=== PATIENT | female | born 1985 | race Caucasian/White ===

== ENCOUNTER 2020-03-13 07:43 | Outpatient (CLI) | payer OTHER ==
--- NOTE | 2020-03-13 08:29 | ULT ---
Pelvic sonogram transabdominal and transvaginal imaging with duplex evaluation HISTORY: Pelvic pain. FINDINGS: Urinary bladder is decompressed. Uterus has a heterogeneous echotexture and measures up to 10.1 cm. Multiple heterogeneous hypoechoic myometrial masses are present. The largest is at the posterior uterine body, measuring up to 7.5 cm x 6.7 cm greatest diameters. Endometrium is slightly distorted and measures up to 0.5 cm. No significant free fluid. Right ovary measures up to 3.5 cm length with good color and spectral Doppler flow. Left ovary not vi sualized with transabdominal or transvaginal imaging. No evidence of adnexal mass. IMPRESSION : Fibroid involvement of the uterus, measuring up to 7.5 cm posteriorly.
--- NOTE | 2020-03-13 08:56 | MMO ---
Bilateral MAMMO Bilat Diag [facility]. CLINICAL HISTORY: Patient is 34 years old and is seen for diagnostic exam. The patient has no family history of breast cancer. The patient has no personal history of cancer. VIEWS: The views performed were: bilateral craniocaudal with tomosynthesis; bilateral mediolateral oblique with tomosynthesis; and bilateral mediolateral with tomosynthesis. FILMS COMPARED: The present examination has been compared to a prior imaging study performed at [facility] [place] on 03/13/2020. This study has been interpreted with the assistance of computer-aided detection. MAMMOGRAM FINDINGS: The breasts are heterogeneously dense, which could obscure a lesion on mammography. No mammographic or ultrasound finding to account for the palpable finding in the lower outer Left breast. There are no suspicious masses, suspicious calcifications, or new areas of architectural distortion. IMPRESSION: THERE IS NO MAMMOGRAPHIC EVIDENCE OF MALIGNANCY. A ROUTINE FOLLOW-UP MAMMOGRAM AT AGE 39 IS RECOMMENDED. THE RESULTS OF THIS EXAM WERE SENT TO THE PATIENT. ACR BI-RADS Category 2 - Benign finding MAMMOGRAPHY NOTE: 1. A negative mammogram report should not delay a biopsy if a dominant of clinically suspicious mass is present. 2. Approximately 10% to 15% of breast cancers are not detected by mammography. 3. Adenosis and dense breasts may obscure an underlying neoplasm. Reported by: DAVID ZHOU MD Electonically Signed: [id number]
--- NOTE | 2020-03-13 11:31 | ULT ---
LEFT BREAST ULTRASOUND LIMITED: HISTORY: The patient presents with a palpable finding in the left breast at approximately the 4-6 o'clock posi tion in the left breast. Diagnostic mammogram showed no evidence for abnormal mammographic finding. FINDINGS: On this ultrasound examination, there is some asymmetric breast tissue, but no evidence for solid or cystic mass. IMPRESSION: No evidence for a solid or cystic mass on ultrasound to account for a palpable finding. No abnormal m ammographic finding was demonstrated. Recommend followup screening exams no later than age 40 depend ing upon risk fractures. POS: MARLINE
== END 2020-03-13 07:44 | disposition home or self-care (01) ==
LOC: BICULT 07:43
PROVIDERS: ATTEND Internal Medicine
DX: N63.20 Unspecified lump in the left breast, unspecified quadrant (principal); R10.2 Pelvic and perineal pain; D25.9 Leiomyoma of uterus, unspecified
CPT/HCPCS: 76856; 77066; G0279

== ENCOUNTER 2020-08-29 09:24 | Inpatient (IN) | payer BC ==
[2020-08-26 09:49] LABS: Hemoglobin 13.8 g/dL (12.0-16.0); Mean Corpuscular HGB CONC 32.8 G/DL (32.0-36.0); Mean Corpuscular Hemoglobin 29.1 PG (27.0-33.0); Mean Corpuscular Volume 88.8 fl (80.0-100.0); Mean Platelet Volume 10.8 fl (7.4-10.4); Platelet Count 227 10x3/uL (130-400); RBC Distribution Width 13.2 % (11.5-14.5); Red Blood Cell (RBC) Count 4.74 10x6/uL (3.90-5.20); White Blood Cell (WBC) Count 8.6 10x3/uL (4.5-11.0)
[2020-08-26 09:51] LABS: BHCG - Serum Negative (NEGATIVE); Pregs Control Background? CLEAR/WHITE (CLR/WHITE); Pregs Control Bar Appear? YES (CONTROL BAR)
[2020-08-27 01:29] LABS: SARS-CoV-2 MS2 Positive; SARS-CoV-2 N Gene Negative; SARS-CoV-2 S Gene Negative; SARS-CoV-2 by NAA Not Detected (NotDetected); SARS-CoV-2 orf1ab Negative
[2020-08-28 11:50] VITALS: BMI 31.6
[2020-08-29] MEDS ORDERED: Promethazine HCl 25 MG/ML VIAL IM PRN ×3 (10:08→13:01)
[2020-08-29] MEDS ORDERED: Ondansetron HCl/PF 4 MG/2 ML Vial IVP PRN ×2 (10:08)
[2020-08-29] MEDS ORDERED: Promethazine HCl 25 MG/ML VIAL SLOW IVP PRN ×2 (10:08)
[2020-08-29] MEDS ORDERED: Fentanyl 100 MCG/2 ML VIAL ONE ×3 (10:15→13:58)
[2020-08-29] MEDS ORDERED: Gabapentin 300 MG CAP ONE (10:21)
[2020-08-29] MEDS ORDERED: Famotidine/PF 20 mg/2ml Vial ONE (10:21)
[2020-08-29] MEDS ORDERED: CeleCOXIB 100 MG CAP ONE (10:21)
[2020-08-29] MEDS ORDERED: PROPOFOL 200 MG/20 ML VIAL ONE (10:51)
[2020-08-29] MEDS ORDERED: Ondansetron PF 4 MG/2 ML Vial ONE (10:51)
[2020-08-29] MEDS ORDERED: Dexamethasone 20 MG/5 ML VIAL ONE (10:51)
[2020-08-29] MEDS ORDERED: Rocuronium Bromide 10 MG/ML (10ML VIAL) ONE (10:51)
[2020-08-29] MEDS ORDERED: Lidocaine 1% PF 5 ML VIAL ONE (10:51)
[2020-08-29] MEDS ORDERED: Midazolam HCl 2 mg/2 ml Vial ONE (11:22)
[2020-08-29] MEDS ORDERED: diphenhydrAMINE 50 MG/ML VIAL IM PRN (13:01)
[2020-08-29] MEDS ORDERED: Naloxone HCl 0.4 mg/ml Vial IV PRN (13:01)
[2020-08-29] MEDS ORDERED: diphenhydrAMINE 25 MG CAP PO PRN (13:01)
[2020-08-29] MEDS ORDERED: diphenhydrAMINE 50 MG/ML VIAL IVP PRN (13:01)
[2020-08-29] MEDS ORDERED: Zolpidem Tartrate 5 MG TAB PO PRN (13:01)
[2020-08-29] MEDS ORDERED: fentaNYL Citrate/PF 2,000 MCG in Sodium Chloride 0.9% 60 ML IV PRN (13:01)
[2020-08-29] MEDS ORDERED: Ondansetron PF 4 MG/2 ML Vial IVP PRN (13:01)
[2020-08-29] MEDS ORDERED: Communication Order-Pharmacy FS SCH (13:15)
--- NOTE | 2020-08-29 14:27 | OP ---
DATE OF PROCEDURE: 08/29/2020 PREOPERATIVE DIAGNOSES: Enlarged fibroid uterus, dysmenorrhea, menorrhagia, pelvic pain. POSTOPERATIVE DIAGNOSES: Enlarged fibroid uterus, dysmenorrhea, menorrhagia, pelvic pain. PROCEDURE PERFORMED: Total abdominal hysterectomy. MAXILLOFACIAL PROSTHETICS DENTIST: Monie Choe MD. ANESTHESIA: Dr. Gong. COMPLICATIONS: None. ESTIMATED BLOOD LOSS: 150 mL. FINDINGS: 1. Enlarged fibroid uterus with multiple large fibroids extending into the cervix. Normal-appearing fallopian tubes, normal-appearing ovaries bilaterally. 2. Surgical site was hemostatic. PROCEDURE IN DETAIL: This patient was taken back to the OR with IV fluids running. Once she was in the OR, general anesthesia was obtained and she was placed in dorsal supine position. The abdomen and vagina were prepped and draped in normal fashion for hysterectomy, and a Eduardo catheter was placed using sterile technique. The patient was then draped. The surgeons were gowned and gloved and attention was then turned to the abdomen to begin the hysterectomy. A Pfannenstiel skin incision was made with a scalpel. The skin incision was carried down through subcutaneous tissue to the fascia. Once the fascia was reached, it was incised in the midline and extended superolaterally using curved Abdul scissors. Beatrice clamps were placed at the superior border of the fascia, which was sharply and bluntly dissected off the rectus abdominis muscles. In similar fashion, the Beatrice clamps placed at the anterior border of the fascia, which was dissected down towards the level of pubic symphysis. The rectus muscles were in the midline. The peritoneum was bluntly entered and stretched. The uterine specimen was examined and mobilized. The above findings noted. The bowel was packed away with moist sponges, and an O'Carl-O'Mason retractor was placed into the abdomen and pelvis for visualization during the hysterectomy. Beginning on the patient's right side, the right round ligament was identified and suture ligated. The round ligament was then cauterized with Bovie cauterization and divided into anterior and posterior leaves. The utero-ovarian ligament and fallopian tube were transected after a Elizabeth clamp was placed, and the pedicle was suture ligated for hemostasis. With the right ovary fallen away at the pelvis and the round ligament dissected, attention was turned towards identifying and skeletonizing the uterine artery. Once the uterine artery was identified, a Elizabeth clamp was placed and the artery was transected. The round ligament dissection was continued anteriorly. Next, attention was turned to the contralateral side. The left round ligament was identified, suture ligated, and transected. It was easily divided into anterior and posterior leaves and the anterior leaf was dissected in a continuum to complete the bladder flap dissection off the most inferior anterior fibroid and a small palpable area of cervix. The uterine artery was then skeletonized. The left fallopian tube was dissected away from the left ovary. The utero-ovarian ligament was clamped, cut, and suture ligated. Next, the uterine artery was clamped, cut, and suture ligated. The uterocervical junction was palpated and only a small amount of cervix was uninvolved in the most inferior uterine fibroid. Attempt was made to amputate the cervix from the uterus, but due to the patient's anatomy, a total abdominal hysterectomy needed to be completed as there was no full circumferential cervix with the cervix and uterine specimen removed, attention was turned to the vaginal cuff. The vaginal cuff was closed with a series of interrupted Vicryl sutures. After the vaginal cuff was closed, the vaginal cuff and surgical pedicles were copiously irrigated and dried. Any small areas of bleeding were controlled with Bovie cauterization. A small area of serosa over the bladder flap was evaluated and a [id number] chromic suture was placed to reapproximate peritoneal edges with hemostasis noted. The lap sponges were removed from the abdomen and the count was correct. The O'Carl-O'Mason retractor was removed from the abdomen. The rectus muscles and fascia were inspected with no areas of bleeding noted. The rectus fascia was reapproximated from corner to corner with PDS suture and tied separately in the midline. The subcutaneous layer was irrigated and dried. Any small areas of bleeding were controlled with Bovie cauterization. The subcutaneous layer was reapproximated with plain gut suture. The skin was closed with 4-0 Monocryl and dressed with Dermabond dressing. Sterile dressing was applied. There were no complications. The patient tolerated the procedure well and she was transferred to the recovery room in good condition. Final count was correct. Job ID: [id number] [facility]
[2020-08-29] MEDS ORDERED: Promethazine HCl 25 MG/ML VIAL ONE (14:53)
[2020-08-29] MEDS ORDERED: Simethicone Chewable 80 MG TAB PO PRN (15:36)
[2020-08-29] MEDS ORDERED: Bisacodyl 10 MG SUPP PR PRN (15:36)
[2020-08-29] MEDS: Sodium Chloride 0.9% 1,000 ML IV SCH ×2 (15:56→21:24)
[2020-08-29] MEDS ORDERED: Ibuprofen 800 MG TAB PO SCH (16:00)
[2020-08-29] MEDS: Ketorolac Tromethamine 30 MG/ML VIAL IVP SCH (17:09)
[2020-08-30] MEDS: Ketorolac Tromethamine 30 MG/ML VIAL IVP SCH ×2 (02:23→06:17)
[2020-08-30 06:35] LABS: Hemoglobin 11.3 g/dL (12.0-16.0); Mean Corpuscular HGB CONC 33.8 g/dL (32.0-36.0); Mean Corpuscular Hemoglobin 29.7 pg (27.0-31.0); Mean Platelet Volume 7.9 fL (7.4-10.4); Platelet Count 177 thou/uL (130-400); RBC Distribution Width 11.8 % (11.5-14.5); Red Blood Cell (RBC) Count 3.81 mill/uL (4.20-5.40); White Blood Cell (WBC) Count 9.1 thou/uL (4.8-10.8)
[2020-08-30] MEDS: Ibuprofen 800 MG TAB PO SCH ×4 (08:20→23:30)
[2020-08-30] MEDS: Sodium Chloride 0.9% 1,000 ML IV SCH ×3 (08:48→18:51)
--- NOTE | 2020-08-30 10:01 | PDOC.EVN ---
Event Note - Event Note Event Note: POD1 S: Sore, pain controlled w [employer]-she just falls asleep w use, tolerating regular diet, hasn't ambulated yet. O: Vital Signs (12 hours) Temp Pulse Resp BP Pulse Ox 08/30/20 07:58 98.1 F 70 20 134/82 99 08/30/20 04:10 98.5 F 69 16 124/81 Weight Weight 190 lb NAD A and O Abd non distended Dressing CDI nonlabored breathing carmen dry path pending A/P: POD1 sp RICKY BS, DL planned but reviewed that anatomy of fibroids not amenable to DL. Discussed plan for DC [employer] and to use oral medications w use reviewed in detail. Possible DC this evening vs. tomorrow aM.
[2020-08-30] MEDS ORDERED: HYDROcodone/Acetaminophen 5/325 mg Tablet PO PRN (10:09)
[2020-08-30] MEDS: HYDROcodone/Acetaminophen 5/325 mg Tablet PO PRN ×4 (10:32→23:31)
[2020-08-31] MEDS: Sodium Chloride 0.9% 1,000 ML IV SCH (07:06)
[2020-08-31] MEDS: Ibuprofen 800 MG TAB PO SCH (08:09)
[2020-08-31] MEDS: HYDROcodone/Acetaminophen 5/325 mg Tablet PO PRN (08:10)
[2020-08-31 08:21] VITALS: BP 126/77; TEMP 98.4
--- NOTE | 2020-08-31 08:29 | PDOC.EVN ---
Event Note - Event Note Event Note: Discharge Note/ POD 2 POD2 doing well, minimal discomfort, no bleeding, tolerating diet and passing gas. VS WNL NAD A and O Abd soft, appopriate tenderness, incision CDI [place] dry A/P: POD2 sp RICKY BS for large fibroid uterus. Plan for DC today.
[2020-08-31] MEDS ORDERED: Loratadine 10 MG TAB PO SCH (09:00)
[2020-09-01] MEDS ORDERED: Ibuprofen 800 MG TAB PO SCH (08:00)
--- NOTE | 2020-09-01 18:11 | DIS ---
DATE OF ADMISSION: 08/29/2020 DATE OF DISCHARGE: 08/31/2020 PREADMISSION DIAGNOSIS: Planned hysterectomy for fibroid uterus. DISCHARGE DIAGNOSIS: Status post total abdominal hysterectomy with bilateral salpingectomy. HOSPITAL COURSE: Ms. Belen Little was admitted on 08/29/2020 for planned supracervical hysterectomy and bilateral salpingectomy. However, the anatomy of her fibroid uterus and cervix was not amenable to preserving the cervix, and she had a total abdominal hysterectomy with bilateral salpingectomy. The patient's postoperative course was uncomplicated. By postop day #2, she was ambulating, tolerating regular diet, using minimal pain medications, passing gas, voiding without difficulty, and requesting discharge home. The patient was discharged home on postop day 2 in good condition with instructions for pelvic rest and pain medication use at home. She has followup planned in our office. Job ID: [id number]
== END 2020-08-31 10:50 | disposition home or self-care (01) | DRG 743 ==
LOC: SURG A 09:24 → 3SE 15:38
PROVIDERS: ADMIT Obstetrics & Gynecology; ATTEND Obstetrics & Gynecology
PROC: 0UT90ZZ Resection of Uterus, Open Approach (ICD-10-PCS; principal; 2020-08-29)
PROC: 0UB70ZZ Excision of Bilateral Fallopian Tubes, Open Approach (ICD-10-PCS; 2020-08-29)
DX: D25.9 Leiomyoma of uterus, unspecified (principal); N92.0 Excessive and frequent menstruation with regular cycle; Z20.828 Contact with and (suspected) exposure to other viral communicable diseases
CPT/HCPCS: 36415; 84703; 85027; 86850; 86900; 86901; 87635; 88307; J0690; J1100; J1885; J2250; J2405; J2550; J2704; J3010; S0028; U0003